=== PATIENT | male | born 1995 | race African-American/Black ===

== ENCOUNTER 2022-12-12 10:56 | Inpatient (IN) | payer OTHER ==
[2022-12-12 11:12] VITALS: BMI 24.3
[2022-12-12] MEDS ORDERED: morphine CARPU-JECT 4 MG/1 ML DISP.SYRIN IVPUSH ONE ×2 (12:26→14:48)
[2022-12-12] MEDS ORDERED: morphine SULFATE 4 MG/ML VIAL ONE ×3 (12:30→20:04)
[2022-12-12 12:40] LABS: HEMOGLOBIN 10.3 GM/dL (11.7-16.9); MEAN CELL VOLUME 79.5 fl (80-96)
[2022-12-12 13:14] LABS: CALCIUM 9.6 mg/dL (8.5-10.1)
[2022-12-12 13:15] LABS: ALBUMIN 4.4 g/dl (3.4-5.0); BLOOD UREA NITROGEN 7.9 mg/dL (7-18)
[2022-12-12 13:19] LABS: CREATININE 0.7 mg/dL (0.55-1.3)
[2022-12-12 13:21] LABS: BILIRUBIN,TOTAL 5.8 mg/dL (0.2-1); TOT PROT 8.2 g/dl (6.4-8.2)
[2022-12-12 13:32] LABS: HEMATOCRIT 30.5 % (35.4-49); MCH 26.9 pg (25.7-33.7); MCHC 33.9 g/dl (32.0-35.9); MEAN PLT VOLUME 8.1 fl (7.5-11.1); PLATELET COUNT 274 10^3/uL (134-434); RBC 3.84 M/mm3 (4.00-5.60); RDW 21.3 % (11.9-15.9); RETICULOCYTES 7.69 % (0.5-1.5)
[2022-12-12 13:39] LABS: ADD RBC MORPHOLOGY YES; WHITE BLOOD COUNT 18.3 K/mm3 (4.0-10.0)
[2022-12-12 14:23] LABS: ANISOCYTOSIS 2+; MACROCYTOSIS 0
[2022-12-12] MEDS ORDERED: ACETAMINOPHEN 1000 MG/100 ML BAG IVPB ONE (14:48)
[2022-12-12] MEDS ORDERED: ACETAMINOPHEN INJECTION 100 ML IVPB ONE ×2 (15:15→23:39)
[2022-12-12 15:42] LABS: EPI CELLS 6 /uL (0-25.1); HYALINE CASTS 0 /uL (0-3.1); URINE APPEARANCE CLEAR; URINE BACTERIA 3 /uL (0-1359); URINE BILIRUBIN NEGATIVE (NEGATIVE); URINE COLOR DK YELLOW; URINE GLUCOSE (UA) NEGATIVE (NEGATIVE); URINE KETONE NEGATIVE (NEGATIVE); URINE LEUK ESTERASE TRACE (NEGATIVE); URINE NITRITE NEGATIVE (NEGATIVE); URINE PROTEIN 1+ (NEGATIVE); URINE RBC 9 /uL (0-23.9); URINE UROBILINOGEN 4.0 E.U/dl mg/dL (0.2-1.0); URINE WBC 15 /uL (0-25.8)
[2022-12-12] MEDS: SODIUM CHLORIDE 1,000 ML IV SCH (20:02)
[2022-12-12] MEDS: morphine SULFATE 4 MG/ML VIAL IVPUSH PRN (20:02)
[2022-12-13] MEDS: ACETAMINOPHEN 1000 MG/100 ML BAG IVPB PRN ×2 (01:15→08:57)
[2022-12-13] MEDS: morphine SULFATE 4 MG/ML VIAL IVPUSH PRN ×2 (02:40→12:23)
[2022-12-13] MEDS ORDERED: morphine SULFATE 4 MG/ML VIAL ONE ×3 (02:43→17:39)
[2022-12-13 07:11] LABS: HEMATOCRIT 29.5 % (35.4-49); HEMOGLOBIN 10.1 GM/dL (11.7-16.9); MCH 27.3 pg (25.7-33.7); MCHC 34.3 g/dl (32.0-35.9); MEAN CELL VOLUME 79.4 fl (80-96); MEAN PLT VOLUME 8.8 fl (7.5-11.1); PLATELET COUNT 363 10^3/uL (134-434); RBC 3.72 M/mm3 (4.00-5.60); RDW 21.1 % (11.9-15.9); WHITE BLOOD COUNT 17.1 K/mm3 (4.0-10.0)
[2022-12-13 07:15] LABS: INR 1.32 (0.83-1.09); PROTHROMBIN TIME (PATIENT) 15.3 SEC (9.7-13.0)
[2022-12-13 07:35] LABS: BLOOD UREA NITROGEN 8.4 mg/dL (7-18); CALCIUM 9.2 mg/dL (8.5-10.1); MAGNESIUM 1.8 mg/dL (1.8-2.4)
[2022-12-13 07:38] LABS: CREATININE 0.8 mg/dL (0.55-1.3)
[2022-12-13 07:39] LABS: PHOSPHOROUS 2.5 mg/dL (2.5-4.9)
[2022-12-13 07:40] LABS: BILIRUBIN,TOTAL 8.4 mg/dL (0.2-1); TOT PROT 7.6 g/dl (6.4-8.2)
[2022-12-13] MEDS ORDERED: ACETAMINOPHEN INJECTION 100 ML IVPB ONE (08:54)
[2022-12-13 10:41] VITALS: RESP 19; TEMP 99.5
[2022-12-13] MEDS: SODIUM CHLORIDE 1,000 ML IV SCH (18:40)
[2022-12-13 19:38] VITALS: BP 154/86; PULSE 90
== END 2022-12-13 19:01 | disposition home or self-care (01) | DRG 662 ==
LOC: JER 10:56 → JERBED 13:40
PROVIDERS: ADMIT Internal Medicine
DX: D57.00 Hb-SS disease with crisis, unspecified (principal)
CPT/HCPCS: 0241U-QW; 36415; 71046-TC-FY; 76705-TC; 80053; 81003; 83735; 84100; 84484; 85025; 85027; 85045; 85610; 85730; 86850; 86900; 86901; 93005; 93010; 99285-25

== ENCOUNTER 2023-05-19 19:23 | Emergency (ER) | payer OTHER ==
[2023-05-19 19:43] VITALS: BP 137/78; PULSE 78; RESP 22; TEMP 97.9; BMI 25.8
[2023-05-19] MEDS ORDERED: ACETAMINOPHEN 500 MG TABLET (FP) PO ONE (21:02)
[2023-05-19] MEDS ORDERED: ACETAMINOPHEN 325 MG TABLET (FP) ONE (21:18)
== END 2023-05-19 21:34 | disposition home or self-care (01) ==
LOC: JER 19:23
DX: R07.9 Chest pain, unspecified (principal); R06.00 Dyspnea, unspecified
CPT/HCPCS: 93005; 93010; 99283-25

== ENCOUNTER 2023-10-20 06:59 | Emergency (ER) | payer OTHER ==
[2023-10-20 07:37] VITALS: BP 150/110; PULSE 61; RESP 18; TEMP 97.8; BMI 26.6
[2023-10-20] MEDS ORDERED: morphine CARPU-JECT 4 MG/1 ML DISP.SYRIN IVPUSH ONE (07:57)
[2023-10-20] MEDS ORDERED: KETOROLAC TROMETHAMINE 15 MG/ML VIAL IVPUSH ONE ×2 (07:57→09:27)
[2023-10-20] MEDS ORDERED: SODIUM CHLORIDE 0.9% 500 ML INFUS.BAG IV ONE (07:59)
[2023-10-20] MEDS ORDERED: morphine SULFATE 4 MG/ML VIAL ONE ×2 (08:17→09:43)
[2023-10-20] MEDS ORDERED: KETOROLAC TROMETHAMINE 15 MG/ML VIAL ONE ×2 (08:17→09:43)
[2023-10-20 08:43] LABS: HEMATOCRIT 27.7 % (35.4-49); HEMOGLOBIN 9.3 GM/dL (11.7-16.9); MCH 26.9 pg (25.7-33.7); MCHC 33.5 g/dl (32.0-35.9); MEAN CELL VOLUME 80.2 fl (80-96); MEAN PLT VOLUME 8.2 fl (7.5-11.1); PLATELET COUNT 470 10^3/uL (134-434); RBC 3.45 M/mm3 (4.00-5.60); RDW 21.4 % (11.9-15.9); RETICULOCYTES 11.86 % (0.5-1.5)
[2023-10-20 08:54] LABS: WHITE BLOOD COUNT 18.7 K/mm3 (4.0-10.0)
[2023-10-20 09:05] LABS: POTASSIUM 3.9 mmol/L (3.5-5.1)
[2023-10-20 09:07] LABS: CALCIUM 9.8 mg/dL (8.5-10.1)
[2023-10-20 09:09] LABS: ALBUMIN 4.2 g/dl (3.4-5.0); BLOOD UREA NITROGEN 8.9 mg/dL (7-18)
[2023-10-20 09:11] LABS: CREATININE 0.9 mg/dL (0.55-1.3)
[2023-10-20 09:13] LABS: BILIRUBIN,TOTAL 3.9 mg/dL (0.2-1); TOT PROT 8.1 g/dl (6.4-8.2)
[2023-10-20] MEDS ORDERED: morphine SULFATE 4 MG/ML VIAL IVPUSH ONE (09:27)
[2023-10-20 10:08] LABS: ANISOCYTOSIS 2+; CORRECTED WBC 12.81 K/mm3; MACROCYTOSIS 1+; SICKELED CELLS 2+
== END 2023-10-20 11:03 | disposition home or self-care (01) ==
LOC: JER 06:59
PROC: 3E0333Z Introduction of Anti-inflammatory into Peripheral Vein, Percutaneous Approach (ICD-10-PCS; principal; 2023-10-20)
PROC: 3E033GC Introduction of Other Therapeutic Substance into Peripheral Vein, Percutaneous Approach (ICD-10-PCS; 2023-10-20)
PROC: 3E033GC Introduction of Other Therapeutic Substance into Peripheral Vein, Percutaneous Approach (ICD-10-PCS; 2023-10-20)
PROC: 3E0333Z Introduction of Anti-inflammatory into Peripheral Vein, Percutaneous Approach (ICD-10-PCS; 2023-10-20)
DX: R07.9 Chest pain, unspecified (principal); M54.9 Dorsalgia, unspecified; D57.00 Hb-SS disease with crisis, unspecified; U07.1 COVID-19
CPT/HCPCS: 0241U-QW; 36415; 71045-TC-FY; 80053; 84484; 85025; 85045; 93005; 93010; 99285-25

== ENCOUNTER 2023-10-21 07:25 | Emergency (ER) | payer OTHER ==
[2023-10-21 08:01] VITALS: TEMP 97.9; BMI 25.1
[2023-10-21] MEDS ORDERED: KETOROLAC TROMETHAMINE 15 MG/ML VIAL IVPUSH ONE (08:35)
[2023-10-21] MEDS ORDERED: KETOROLAC TROMETHAMINE 15 MG/ML VIAL ONE (08:49)
[2023-10-21] MEDS ORDERED: SODIUM CHLORIDE 500 ML IV STA (08:57)
[2023-10-21 09:48] LABS: HEMATOCRIT 27.1 % (35.4-49); HEMOGLOBIN 9.2 GM/dL (11.7-16.9); MCH 27.5 pg (25.7-33.7); MCHC 33.9 g/dl (32.0-35.9); MEAN CELL VOLUME 81.1 fl (80-96); MEAN PLT VOLUME 8.4 fl (7.5-11.1); PLATELET COUNT 377 10^3/uL (134-434); RBC 3.34 M/mm3 (4.00-5.60); RDW 21.9 % (11.9-15.9); RETICULOCYTES 9.93 % (0.5-1.5)
[2023-10-21 09:52] LABS: WHITE BLOOD COUNT 20.4 K/mm3 (4.0-10.0)
[2023-10-21 10:16] LABS: POTASSIUM 3.5 mmol/L (3.5-5.1)
[2023-10-21 10:19] LABS: BLOOD UREA NITROGEN 6.3 mg/dL (7-18)
[2023-10-21 10:23] LABS: BILIRUBIN,TOTAL 5.8 mg/dL (0.2-1); CREATININE 0.7 mg/dL (0.55-1.3); TOT PROT 7.8 g/dl (6.4-8.2)
[2023-10-21 10:48] LABS: ANISOCYTOSIS 3+; MACROCYTOSIS 0; SICKELED CELLS 3+; TARGET CELLS 1+
[2023-10-21] MEDS ORDERED: SODIUM CHLORIDE 0.9% 500 ML INFUS.BAG IV ONE (11:47)
[2023-10-21] MEDS ORDERED: oxyCODONE HCL 5 MG TABLET PO ONE (13:08)
[2023-10-21] MEDS ORDERED: oxyCODONE HCL 5 MG TABLET ONE (13:33)
[2023-10-21 13:50] VITALS: BP 149/77; PULSE 800; RESP 18
== END 2023-10-21 13:50 | disposition home or self-care (01) ==
LOC: JER 07:25
PROC: 3E0333Z Introduction of Anti-inflammatory into Peripheral Vein, Percutaneous Approach (ICD-10-PCS; principal; 2023-10-21)
PROC: 3E0337Z Introduction of Electrolytic and Water Balance Substance into Peripheral Vein, Percutaneous Approach (ICD-10-PCS; 2023-10-21)
DX: U07.1 COVID-19 (principal); D57.00 Hb-SS disease with crisis, unspecified; M79.10 Myalgia, unspecified site; R10.9 Unspecified abdominal pain; R07.89 Other chest pain
CPT/HCPCS: 36415; 71046-TC-FY; 71275-TC; 80053; 84484; 85025; 85045; 93005; 93010; 99285-25; Q9967